=== PATIENT | male | born 1955 | race Two or more races ===

== ENCOUNTER 2025-04-09 14:01 | Inpatient (IN) | payer MEDICARE, BC ==
[~2025-04-09] VITALS: Ht 182.9 cm; Wt 95.3 kg
[2025-04-09 15:18] LABS: PLATELET COUNT (AUTO) 226 K/uL (150-450); RED BLOOD CELL COUNT(AUTO) 4.75 MIL/uL (4.5-6.0); RED CELL DISTRIBUTION WIDTH 16.0 % (11.5-15.0); WHITE BLOOD COUNT (AUTO) 5.7 K/uL (4.3-11.0)
[2025-04-09 15:20] LABS: APPEARANCE,URINE CLEAR (CLEAR); BLOOD, URINE NEGATIVE Ery/uL (NEGATIVE); LEUKOCYTE ESTERASE ,URINE NEGATIVE (NEGATIVE); NITRITE, URINE NEGATIVE (NEGATIVE); UGLUCOSE NEGATIVE (NEGATIVE)
[2025-04-09 15:25] LABS: AMPHETAMINE, URINE NEGATIVE (NEGATIVE); BARBITURATE, URINE NEGATIVE (NEGATIVE); BENZODIAZEPINE, URINE NEGATIVE (NEGATIVE); CANNABINOID, URINE NEGATIVE (NEGATIVE); COCCAINE, URINE NEGATIVE (NEGATIVE); OPIATE, URINE NEGATIVE (NEGATIVE)
[2025-04-09 15:32] LABS: CALCIUM, SERUM 8.5 mg/dL (8.5-10.1); CREATININE 1.0 mg/dL (0.6-1.3); SODIUM SERUM 137 mmol/L (136-145); UREA NITROGEN, BLOOD 12 mg/dL (7-18)
[2025-04-09 15:33] LABS: ALCOHOL, BLOOD < 3 mg/dL (0-10); ASPARTATE AMINOTRANSFERASE 17 U/L (15-37); TOTAL PROTEIN, SERUM 6.7 g/dL (6.4-8.2)
[2025-04-09 16:05] VITALS: O2SAT 97
[2025-04-09] MEDS ORDERED: LAMO200T10 PO (16:29)
[2025-04-09] MEDS ORDERED: NIFE-34 PO (16:29)
[2025-04-09] MEDS ORDERED: FAMO40TA70 PO (16:29)
[2025-04-09] MEDS ORDERED: MAG HYDROX/AL HYDROX/SIMETH 30 ML UDC PO PRN (17:30)
[2025-04-09] MEDS ORDERED: LORAZEPAM 0.5 MG TABLET PO PRN (17:30)
[2025-04-09] MEDS: BLOOD SUGAR DIAGNOSTIC 1 EACH STRIP IN ONE (17:33)
[2025-04-09 20:32] VITALS: BP 144/88; TEMP 98.2; O2SAT 98
[2025-04-09] MEDS: ACETAMINOPHEN 325 MG TABLET PO PRN (22:20)
[2025-04-09] MEDS ORDERED: NIFEdipine XL (30MG) 30 MG TAB PO ONE (22:29)
[2025-04-09] MEDS ORDERED: NIFEDIPINE XL 60 MG TAB.ER.24 PO ONE (22:52)
[2025-04-09] MEDS: NIFEDIPINE XL 60 MG TAB.ER.24 PO SCH (22:57)
[2025-04-09] MEDS: TEMAZEPAM 7.5 MG CAPSULE PO ONE (23:09)
[2025-04-10 07:49] LABS: ASPARTATE AMINOTRANSFERASE 16.0 U/L (15-37); CALCIUM, SERUM 8.6 mg/dL (8.5-10.1); CREATININE 0.9 mg/dL (0.6-1.3); SODIUM SERUM 140.0 mmol/L (136-145); TOTAL PROTEIN, SERUM 6.2 g/dL (6.4-8.2); UREA NITROGEN, BLOOD 10.0 mg/dL (7-18)
[2025-04-10 08:00] VITALS: BP 140/84; TEMP 98.8; O2SAT 98
[2025-04-10 08:03] LABS: LDL 129 mg/dL (0-99)
[2025-04-10] MEDS ORDERED: NIFEDIPINE XL 60 MG TAB.ER.24 PO SCH (09:00)
[2025-04-10 16:00] VITALS: BP 125/75; TEMP 98.6; O2SAT 95
[2025-04-10] MEDS: OLANZAPINE 2.5 MG TABLET PO SCH (16:36)
[2025-04-10 17:46] LABS: CREATININE 0.9 mg/dL (0.6-1.3)
[2025-04-10] MEDS: FAMOTIDINE (20 MG) 20 MG TABLET PO SCH (18:05)
[2025-04-10 20:53] VITALS: BP 128/80; TEMP 99; O2SAT 97
[2025-04-10] MEDS: ATORVASTATIN 10 MG TABLET PO SCH (21:53)
[2025-04-10] MEDS ORDERED: NIFEDIPINE XL 60 MG TAB.ER.24 PO ONE (22:27)
[2025-04-11 08:00] VITALS: BP 152/92; TEMP 97.7; O2SAT 98
[2025-04-11 16:00] VITALS: BP 128/54; TEMP 98; O2SAT 96
[2025-04-11] MEDS: MAGNESIUM HYDROXIDE 30 ML UDC PO PRN (20:17)
[2025-04-11 20:46] VITALS: BP 141/82; TEMP 98.4; O2SAT 98
[2025-04-11] MEDS: TEMAZEPAM 7.5 MG CAPSULE PO PRN (21:32)
[2025-04-11] MEDS ORDERED: NIFEdipine XL (30MG) 30 MG TAB PO ONE (21:58)
[2025-04-11] MEDS: NIFEdipine XL (30MG) 30 MG TAB PO SCH (22:33)
[2025-04-11] MEDS ORDERED: MAGNESIUM CITRATE 296 ML BOTTLE PO ONE (23:00)
[2025-04-11] MEDS: POLYETHYLENE GLYCOL 3350 17 GM POWD.PACK PO ONE (23:17)
[2025-04-12 08:00] VITALS: BP 147/81; TEMP 97.9; O2SAT 98
[2025-04-12] MEDS: ASPIRIN 81 MG TAB.CHEW PO SCH (12:38)
[2025-04-12] MEDS ORDERED: ATORVASTATIN 10 MG TABLET PO SCH (22:00)
== END 2025-04-12 14:40 | disposition home or self-care (01) | DRG 885 ==
LOC: ER 14:05 → GPS 16:45
PROVIDERS: ADMIT Psychiatry & Neurology Psychiatry; ATTEND Registered Nurse Psychiatric/Mental Health
DX: F31.64 Bipolar disorder, current episode mixed, severe, with psychotic features (principal); E44.1 Mild protein-calorie malnutrition; F31.5 Bipolar disorder, current episode depressed, severe, with psychotic features; D64.9 Anemia, unspecified; I10 Essential (primary) hypertension; Z73.6 Limitation of activities due to disability; E78.5 Hyperlipidemia, unspecified; E88.09 Other disorders of plasma-protein metabolism, not elsewhere classified; Z20.822 Contact with and (suspected) exposure to COVID-19; Z68.28 Body mass index [BMI] 28.0-28.9, adult
CPT/HCPCS: 36415; 70450-TC; 80048-TC; 80053-TC; 80061-TC; 80076-TC; 82565-TC; 82962-TC; 85025-TC; A6403; G0480